=== PATIENT | female | born 1965 | race Caucasian/White ===

== ENCOUNTER → 2017-02-18 | Outpatient (CLI) | payer BC ==
[~2017-02-18] MED LIST: CALC-678; HALO1TAB; LEVO200T6; SERT-165
--- NOTE | 2017-02-18 12:50 | RADRPT ---
PROCEDURE: Gastric emptying scan CLINICAL INDICATION: 52 -year-old patient with abdominal pain, nausea and vomiting. TECHNIQUE: Following the oral administration of 1.1 mCi of Tc-99m sulfur colloid, labeled to a jazmyn id meal, gastric emptying study was obtained. COMPARISON: No prior studies. FINDINGS: The stomach is well visualized. The small intestines are identified. There is evidence of normal gastric emptying rate from the start of the study with calculated T1/2 t alfredito of 56 minutes (normal range is 30 - 90 minutes). There is no evidence of increased activity in the chest to suggest the presence of gastroesophageal reflux. IMPRESSION: Normal gastric emptying rate . RPTAT: HH .Charlette Eisenberg MD, Date Time Electronically viewed and signed by .Charlette Eisenberg MD, MD on 02/18/2017 12:50 .L/
== END | disposition home or self-care (01) ==
LOC: NUC 09:49
PROVIDERS: ATTEND Internal Medicine
DX: R10.9 Unspecified abdominal pain (principal)
CPT/HCPCS: 78264; A9541